=== PATIENT | male | born 1990 | race African-American/Black ===

== ENCOUNTER 2022-02-16 03:18 | Emergency (ER) | payer SELFPAY ==
[~2022-02-16] VITALS: Ht 170.2 cm; Wt 87.0 kg
[2022-02-16 04:35] VITALS: BP 132/87
[2022-02-16 05:01] LABS: BASOPHILS % 0.6 % (0.0-2.0); EOSINOPHILS % 0.4 % (0.0-5.0); HEMATOCRIT. 43.6 % (42.0-52.0); HEMOGLOBIN. 14.9 g/dL (14.0-18.0); LYMPHOCYTES % 22.2 % (20.0-50.0); MEAN CORPUSCULAR HEMOGLOBIN 28.7 pg (28.0-32.0); MEAN CORPUSCULAR VOLUME 84.1 fL (80.0-94.0); MEAN PLATELET VOLUME 7.1 fl (7.4-10.4); MONOCYTES % 9.7 % (2.0-8.0); NEUTROPHILS % 67.1 % (40.0-76.0); PLATELET 412 x1000/uL (130-400); RED BLOOD CELL COUNT 5.19 mill/uL (4.7-6.1); RED CELL DISTRIBUTION WIDTH 13.7 % (11.6-14.6)
[2022-02-16 05:14] LABS: CHLORIDE 104 mEq/L (98-107)
== END 2022-02-16 05:49 | disposition left against medical advice (07) ==
LOC: ER 03:18
DX: F15.10 Other stimulant abuse, uncomplicated (principal); F17.210 Nicotine dependence, cigarettes, uncomplicated
CPT/HCPCS: 36415; 71045; 80053; 84484; 85025; 85379; 93005; 99285

== ENCOUNTER 2022-04-25 18:35 | Emergency (ER) | payer SELFPAY ==
[~2022-04-25] VITALS: Ht 170.2 cm; Wt 80.0 kg
[2022-04-25 18:54] VITALS: BP 122/77
[2022-04-25] MEDS ORDERED: ACETAMINOPHEN 325MG TABLET PO STA (23:42)
[2022-04-25] MEDS ORDERED: SODIUM CHLORIDE 0.9% 1000ML BAG (SEPSIS BOLUS) IV ONE (23:45)
[2022-04-25] MEDS ORDERED: VANCOMYCIN 1G PREMIX 200 ML IV ONE (23:45)
[2022-04-25] MEDS ORDERED: PIPERACILLIN/TAZ 3.375G PREMIX 50 ML IV ONE (23:45)
== END 2022-04-26 01:17 | disposition left against medical advice (07) ==
LOC: ER 18:46
DX: Z53.21 Procedure and treatment not carried out due to patient leaving prior to being seen by health care provider (principal)
CPT/HCPCS: J7030

== ENCOUNTER 2022-04-28 21:16 | Inpatient (IN) | payer MEDICAID ==
[~2022-04-28] VITALS: Ht 175.3 cm; Wt 77.1 kg
[2022-04-28] MEDS ORDERED: KETOROLAC 30MG/ML VIAL IV STA (22:05)
[2022-04-28] MEDS ORDERED: PIPERACILLIN/TAZ 3.375G PREMIX 50 ML IV ONE (22:15)
[2022-04-28] MEDS ORDERED: VANCOMYCIN 1G PREMIX 200 ML IV ONE (22:15)
[2022-04-28] MEDS ORDERED: SODIUM CHLORIDE 0.9% 1,000 ML IV ONE (22:15)
[2022-04-28] MEDS ORDERED: CLINDAMYCIN 900 MG in DEXTROSE 5% WATER 50 ML IV ONE (22:15)
[2022-04-28] MEDS ORDERED: SODIUM CHLORIDE 0.9% 1000ML BAG (SEPSIS BOLUS) IV ONE (22:15)
[2022-04-28 22:48] LABS: HEMATOCRIT. 37.8 % (42.0-52.0); HEMOGLOBIN. 12.5 g/dL (14.0-18.0); MEAN CORPUSCULAR HEMOGLOBIN 28.4 pg (28.0-32.0); MEAN CORPUSCULAR VOLUME 85.6 fL (80.0-94.0); MEAN PLATELET VOLUME 6.8 fl (7.4-10.4); PLATELET 448 x1000/uL (130-400); RED BLOOD CELL COUNT 4.42 mill/uL (4.7-6.1); RED CELL DISTRIBUTION WIDTH 14.3 % (11.6-14.6)
[2022-04-28 22:55] LABS: CHLORIDE 95 mEq/L (98-107)
[2022-04-28 22:56] LABS: INR 1.1; PROTHROMBIN TIME 11.5 sec (9.6-11.0)
[2022-04-28 23:02] LABS: ETHANOL BLOOD < 10 mg/dL
[2022-04-28 23:11] LABS: PLATELET ESTIMATE INCREASED
[2022-04-28] MEDS ORDERED: KETOROLAC 30MG/ML VIAL IV NR (23:45)
[2022-04-29] MEDS ORDERED: IOHEXOL-300 100 ML BOTTLE ONE (00:41)
[2022-04-29 08:00] VITALS: BP 123/82
[2022-04-29 08:15] VITALS: BP 123/82
[2022-04-29] MEDS ORDERED: ONDANSETRON HCL 4MG/2ML INJ IV PRN (09:00)
[2022-04-29] MEDS: LEVOFLOXACIN 500MG PREMIX 100 ML IV SCH (11:17)
[2022-04-29] MEDS: ENOXAPARIN 40MG/0.4ML SYR SUBCUT SCH (11:18)
[2022-04-29] MEDS: ACETAMINOPHEN 325MG TABLET PO PRN (11:19)
[2022-04-29 12:00] VITALS: BP 119/69
[2022-04-29] MEDS ORDERED: VANCOMYCIN 1G PREMIX 200 ML IV SCH (12:00)
[2022-04-29] MEDS: VANCOMYCIN 1G PREMIX 200 ML IV SCH ×2 (14:04→21:50)
[2022-04-29 15:26] LABS: *AMPHETAMINES SCREEN URINE PRESUMTIVE POSITIVE (NEGATIVE); *BARBITURATES SCREEN URINE NEGATIVE (NEGATIVE); *BENZODIAZEPINES SCREEN URINE NEGATIVE (NEGATIVE); *COCAINE SCREEN URINE NEGATIVE (NEGATIVE); CANNABINOID URINE SCREEN PRESUMTIVE POSITIVE (NEGATIVE); METHADONE URINE SCREEN NEGATIVE (NEGATIVE); OPIATES URINE SCREEN PRESUMTIVE POSITIVE (NEGATIVE); PHENCYCLIDINE URINE SCREEN NEGATIVE (NEGATIVE)
[2022-04-29 16:00] VITALS: BP 119/80
[2022-04-29 20:00] VITALS: BP 120/74
[2022-04-30] VITALS: BP 124/67
[2022-04-30 04:00] VITALS: BP 125/79
[2022-04-30] MEDS: VANCOMYCIN 1G PREMIX 200 ML IV SCH (06:20)
[2022-04-30] MEDS: ACETAMINOPHEN 325MG TABLET PO PRN (06:21)
[2022-04-30 08:00] VITALS: BP 131/88
[2022-04-30] MEDS: ENOXAPARIN 40MG/0.4ML SYR SUBCUT SCH (09:25)
[2022-04-30] MEDS: LEVOFLOXACIN 500MG PREMIX 100 ML IV SCH (09:26)
[2022-04-30] MEDS: KETOROLAC 30MG/ML VIAL IV PRN ×2 (09:33→16:36)
[2022-04-30] MEDS ORDERED: HYDROMORPHONE HCL/PF 2MG/ML CPJ IV NR (09:45)
[2022-04-30 10:52] LABS: BASOPHILS % 0.6 % (0.0-2.0); EOSINOPHILS % 1.4 % (0.0-5.0); HEMOGLOBIN. 11.9 g/dL (14.0-18.0); LYMPHOCYTES % 11.8 % (20.0-50.0); MEAN CORPUSCULAR HEMOGLOBIN 28.4 pg (28.0-32.0); MEAN CORPUSCULAR VOLUME 85.5 fL (80.0-94.0); MEAN PLATELET VOLUME 6.7 fl (7.4-10.4); MONOCYTES % 11.6 % (2.0-8.0); NEUTROPHILS % 74.6 % (40.0-76.0); PLATELET 398 x1000/uL (130-400); RED BLOOD CELL COUNT 4.21 mill/uL (4.7-6.1); RED CELL DISTRIBUTION WIDTH 14.3 % (11.6-14.6)
[2022-04-30 11:01] LABS: CHLORIDE 104 mEq/L (98-107)
[2022-04-30 11:08] LABS: VANCOMYCIN TROUGH 8.6 ug/mL (5.0-10.0)
[2022-04-30 12:00] VITALS: BP 131/82
[2022-04-30] MEDS: VANCOMYCIN 1.25GM PMX (XELLIA) 250 ML IV SCH ×2 (15:26→21:00)
[2022-04-30 16:00] VITALS: BP 116/84
[2022-04-30 20:00] VITALS: BP 126/86
[2022-05-01] VITALS: BP 119/70
[2022-05-01 03:34] LABS: CHLORIDE 102 mEq/L (98-107)
[2022-05-01 04:00] VITALS: BP 123/71
[2022-05-01 08:00] VITALS: BP 143/96
[2022-05-01] MEDS: VANCOMYCIN 1.25GM PMX (XELLIA) 250 ML IV SCH ×3 (08:16→22:34)
[2022-05-01] MEDS: ENOXAPARIN 40MG/0.4ML SYR SUBCUT SCH (09:30)
[2022-05-01 12:00] VITALS: BP 127/87
[2022-05-01] MEDS: LEVOFLOXACIN 500MG PREMIX 100 ML IV SCH (13:09)
[2022-05-01 16:00] VITALS: BP 132/78
[2022-05-01] MEDS ORDERED: ENOXAPARIN 40MG/0.4ML SYR SUBCUT SCH (17:30)
[2022-05-01 20:00] VITALS: BP 134/86
[2022-05-02] VITALS: BP 148/102
[2022-05-02 04:00] VITALS: BP_SYST 134; BP_SYST 138; BP_DIAS 78; BP_DIAS 97
[2022-05-02] MEDS: VANCOMYCIN 1.25GM PMX (XELLIA) 250 ML IV SCH (06:14)
[2022-05-02 08:00] VITALS: BP 132/87
[2022-05-02] MEDS ORDERED: CEPH500C2 MT (08:03)
[2022-05-02 08:41] LABS: CHLORIDE 100 mEq/L (98-107)
[2022-05-02 09:18] LABS: MEAN CORPUSCULAR HEMOGLOBIN 28.4 pg (28.0-32.0); MEAN CORPUSCULAR VOLUME 86.2 fL (80.0-94.0); MEAN PLATELET VOLUME 6.5 fl (7.4-10.4); PLATELET 554 x1000/uL (130-400); RED BLOOD CELL COUNT 4.85 mill/uL (4.7-6.1)
[2022-05-02 09:20] LABS: HEMATOCRIT. 41.8 % (42.0-52.0); HEMOGLOBIN. 13.8 g/dL (14.0-18.0)
[2022-05-02 10:58] VITALS: BP 131/59
[2022-05-02] MEDS ORDERED: LEVOFLOXACIN 500MG TABLET PO SCH (11:00)
[2022-05-03 01:06] LABS: PLATELET ESTIMATE INCREASED
== END 2022-05-02 11:20 | disposition home or self-care (01) | DRG 720 ==
LOC: ER 21:27 → MICUSO 23:45 → 6EST 04-29 08:09
PROVIDERS: ADMIT Internal Medicine; ATTEND Internal Medicine
DX: A41.9 Sepsis, unspecified organism (principal); E87.1 Hypo-osmolality and hyponatremia; L03.115 Cellulitis of right lower limb; F17.210 Nicotine dependence, cigarettes, uncomplicated; Z20.822 Contact with and (suspected) exposure to COVID-19; F15.90 Other stimulant use, unspecified, uncomplicated; M70.41 Prepatellar bursitis, right knee; Y93.89 Activity, other specified
CPT/HCPCS: 36415; 73560; 73702; 73721; 76881; 80048; 80053; 80202; 80305; 80320; 83605; 83735; 84145; 85025; 85651; 87070; 87426; 97162; 99291; C9803; J1650; J1885; J1956; J2543; J3370; J3490; J7030; J7060; Q9967; G0480